=== PATIENT | female | born 1935 | race Caucasian/White ===

== ENCOUNTER 2017-09-21 19:00 | Inpatient (IN) | payer OTHER, MEDICARE ==
--- NOTE | 2017-09-21 19:14 | PDOC ---
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 Patients relative at bedside reports the patient was noted to be tachypneic earlier today while sitting upright in the car which prompted her to come to the ED for evaluation. She reports the patient has had episodes of nausea with emesis and diarrhea in the past 2 days. The patient states her last meal was this morning and states she was able to tolerate tea and toast. She denies recent fever, chills, headache or dizziness. She denies recent dysuria, frequency, urgency or hematuria. She denies recent chest pain. 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 MEDICATIONS: reviewed ALLERGIES: As per nursing notes Review of Systems General: +General malaise. No fevers or chills HEENT: No change in vision. No sore throat,. No ear pain CardioVascular: +Shortness of breath. No chest pain. Respiratory:No cough, or wheezing. Gastrointestinal: +Nausea. +Vomiting. +Diarrhea. No constipation, No rectal bleeding Genitourinary: No dysuria, hematuria, or frequency Musculoskeletal: No joint or muscle pain or swelling Neurologic: No headache, vertigo, dizziness or loss of consciousness Psychiatric: nor depression Skin: No rashes or easy bruising Endocrine: no increased thirst or abnormal weight change Allergic: no skin or latex allergy All other systems reviewed and normal Physical Exams General: (+) Elderly ill appearing female. No acute distress HEENT: Throat: (+) Dry mucus membranes. Tonsils normal, no erythema or exudate Neck: Supple, no meningeal signs, no lymphadenopathy Eyes::Pupils equal reactive and round, extraocular motion intact Chest: Nontender to palpation Cardiac: S1-S2 normal, regular rate and rhythm, no murmurs rubs or gallops Respiratory: (+) Decreased breath sounds bilaterally with rales both inspiratory and expiratory. (+) Few expiratory wheezes on the right. Abdomen: (+) Slightly distended. (+) Large palpable and firm mass in the mid abdominal area ??spleen. Otherwise soft and normal bowel sounds. No tenderness. Mass is not pulsatile Extremities: (+) Moderate amount of lymphedema bilaterally. Warm, dry, no cyanosis, clubbing. Skin: No rashes Neuro: Alert and oriented x3, nonfocal exam, grossly intact. Psych: Normal mood and affect <Yang Goode - Last Filed: 09/21/17 20:28> - General History Source: Patient, Family Exam Limitations: No Limitations - History of Present Illness Initial Comments: A portion of this note was documented by scribe services under my direction. I have reviewed the details of the note, within reason, and agree with the documentation. The case summary and management plan written by me. Medical decision making this is an 82-year-old female who comes in complaining of nausea vomiting diarrhea and feeling poorly. Patient also complaining of some chills. Patient was noted to have a rectal temp of 101.1 here in the emergency room. Patient has history significant for myelofibrosis. Will obtain a sepsis workup, will hydrate patient with normal saline patient is not hypotensive or tachycardic at this time. Will obtain chest x-ray and CAT scan of abdomen and pelvis We will reassess and evaluate results of workup 21:00 Reassessment. Patient is received approximately 1/2 L of fluid. Patient feels a little better and does look better. Patient somewhat more alert. Patient's family at the bedside discussed with them results of workup so far which includes a markedly elevated white count of 237,000. As per patient her last white count was 240,000. Patient requires frequent transfusion however her H&H today is 9 and 25 Patient does have renal insufficiency with a BUN of 77 and a creatinine of 2.2. 09/21/17 23:04 Reassessment: Reassessment: Patient is improved clinically and hemodynamically stable however does require oxygen to maintain O2 sats above 90%. Chest x-ray shows probable right upper lobe infiltrate While here patient antibiotics ceftriaxone and azithromycin CT of the abdomen is still pending Patient will be admitted to an inpatient observation bed <Garcia Still I - Last Filed: 09/21/17 23:06> - General Chief Complaint: Vomiting/Diarrhea Stated Complaint: NAUSEA, VOMITING, DIARRHEA Time Seen by Provider: 09/21/17 19:13 Past History <Yang Goode - Last Filed: 09/21/17 20:28> <Garcia Still I - Last Filed: 09/21/17 23:06> - Past Medical History Allergies/Adverse Reactions: Allergies Allergy/AdvReac Type Severity Reaction Status Date / Time erythromycin base AdvReac Mild Nausea Verified 09/21/17 19:15 Home Medications: Ambulatory Orders Hydroxyurea [Hydrea] 500 mg PO BID 09/21/17 Ruxolitinib Phosphate [Jakafi] 15 mg PO BID 09/21/17 *Physical Exam - Vital Signs Last Vital Signs Temp Pulse Resp BP Pulse Ox 101.1 F H 104 H 30 H 95/43 94 L 09/21/17 19:25 09/21/17 19:25 09/21/17 19:25 09/21/17 19:25 09/21/17 19:25 <Yang Goode - Last Filed: 09/21/17 20:28> Heart Score/ECG Review #1 09/21/17 20:29 Sinus rhythm with occasional premature ventricular complexes at 88 bpm. QT/QTc: 386/467 ms <Yang Goode - Last Filed: 09/21/17 20:28> ED Treatment Course - LABORATORY CBC & Chemistry Diagram: 09/21/17 19:30 09/21/17 19:30 <Yang Goode - Last Filed: 09/21/17 20:28> - LABORATORY CBC & Chemistry Diagram: 09/21/17 19:30 09/21/17 19:30 <Garcia Still I - Last Filed: 09/21/17 23:06> *DC/Admit/Observation/Transfer - Attestations Scribe Attestion: 09/21/17 20:12 Documentation prepared by Yang Goode, acting as medical records specialist for Garcia Still MD. <Yang Goode - Last Filed: 09/21/17 20:28> - Discharge Dispostion Admit: Yes <Garcia Still I - Last Filed: 09/21/17 23:06> Diagnosis at time of Disposition: Dehydration Pneumonia Qualifiers: Pneumonia type: due to unspecified organism Laterality: left Lung location: upper lobe of lung Qualified Code(s): J18.1 - Lobar pneumonia, unspecified organism - Discharge Dispostion Condition at time of disposition: Fair
[2017-09-21] MEDS ORDERED: SODIUM CHLORIDE 1,000 ML IV STA (19:20)
[2017-09-21 19:34] VITALS: BMI 22.4
[2017-09-21 20:02] LABS: HEMATOCRIT 25.3 % (32.4-45.2); HEMOGLOBIN 9.1 GM/dl (10.7-15.3); MCH 38.6 pg (25.7-33.7); MCHC 36.1 g/dl (32.0-36.0); MEAN CELL VOLUME 106.9 fl (80-96); MEAN PLT VOLUME 10.6 fl (7.5-11.1); RBC 2.37 M/mm3 (3.60-5.2); RDW 20.3 % (11.6-15.6)
[2017-09-21 20:09] LABS: WHITE BLOOD COUNT 237.4 K/mm3 (4.0-10.8)
[2017-09-21 20:10] LABS: ADD RBC MORPHOLOGY YES; PLATELET COUNT 45 K/MM3 (134-434)
[2017-09-21 20:27] LABS: ACTIVATED PTT 46.9 SECONDS (24.0-38.9)
[2017-09-21 20:28] LABS: ALBUMIN 3.7 g/dl (3.5-5.0); ALK PHOS 54 U/L (32-92); ANION GAP 7 (8-16); BILIRUBIN,TOTAL 0.8 mg/dl (0.2-1.0); BLOOD UREA NITROGEN 77 mg/dl (7-18); CALCIUM 8.2 mg/dl (8.4-10.2); CHLORIDE 108 mmol/L (98-107); CO2 21 mmol/L (22-28); CREATININE 2.2 mg/dl (0.6-1.3); GLUCOSE,RANDOM 134 mg/dl (74-106); POTASSIUM 4.6 mmol/L (3.5-5.1); SGOT/AST 16 U/L (10-42); SGPT/ALT 15 U/L (10-40); SODIUM 136 mmol/L (136-145); TOT PROT 5.3 g/dl (6.4-8.3)
[2017-09-21 20:30] LABS: VENOUS PH 7.31 (7.32-7.42); VENOUS PO2 11.6 mmHg (28-48)
[2017-09-21 20:31] LABS: INR 1.89 (0.82-1.09); PROTHROMBIN TIME (PATIENT) 20.9 SEC (10.2-13.0)
[2017-09-21 21:45] LABS: ANISOCYTOSIS 2+; MACROCYTOSIS 2+; TEAR DROP CELLS 1+
[2017-09-21 21:47] LABS: PLATELET ESTIMATE DECREASED
[2017-09-21 22:25] LABS: URINE APPEARANCE Clear; URINE BILIRUBIN Negative (NEGATIVE); URINE BLOOD Negative (NEGATIVE); URINE GLUCOSE (UA) Negative (NEGATIVE); URINE KETONE Negative (NEGATIVE); URINE LEUK ESTERASE Negative (NEGATIVE); URINE NITRITE Negative (NEGATIVE); URINE UROBILINOGEN 0.2 (0.2-1.0)
[2017-09-21 22:28] LABS: URINE COLOR YELLOW; URINE PROTEIN 2+ (NEGATIVE)
[2017-09-21] MEDS ORDERED: CEFTRIAXONE 1,000 MG in DEXTROSE 5%-WATER - 50 ML IVPB ONE (22:41)
[2017-09-21] MEDS ORDERED: cefTRIAXone SODIUM 1 GM VIAL ONE (22:43)
[2017-09-21] MEDS ORDERED: AZITHROMYCIN IVPB 500 MG in DEXTROSE 5%-WATER - 250 ML IVPB ONE (23:00)
[2017-09-21] MEDS ORDERED: AZITHROMYCIN 500 MG VIAL IVPB ONE (23:08)
[2017-09-21 23:14] LABS: URINE RBC 0-3 /hpf (0-3)
[2017-09-21 23:15] LABS: AMORP URATES MODERATE /hpf (NONE SEEN); URINE CASTS COASELY GRANULAR 3-5 /hpf
[2017-09-21] MEDS ORDERED: MAG HYDROX/AL HYDROX/SIMETH 30 ML UNIT-DOSE CUP ONE (23:29)
[2017-09-21] MEDS ORDERED: MAG HYDROX/AL HYDROX/SIMETH 30 ML UNIT-DOSE CUP PO ONE (23:36)
[2017-09-22] MEDS: HYDROXYUREA 500 MG CAPSULE PO SCH ×3 (00:36→21:36)
--- NOTE | 2017-09-22 09:00 | EKG ---
Test Reason : Blood Pressure : / mmHG Vent. Rate : 088 BPM Atrial Rate : 088 BPM P-R Int : 132 ms QRS Dur : 102 ms QT Int : 386 ms P-R-T Axes : 052 032 165 degrees QTc Int : 467 ms SINUS RHYTHM WITH OCCASIONAL PREMATURE VENTRICULAR COMPLEXES NONSPECIFIC ST AND T WAVE ABNORMALITY ABNORMAL ECG NO PREVIOUS ECGS AVAILABLE Confirmed by EBONI URELAS MD ([id number]) on 09/22/2017 9:00:36 AM Referred By: GARRETT Confirmed By:EBONI RUELAS MD
[2017-09-22 09:19] LABS: ANION GAP 7 (8-16); BLOOD UREA NITROGEN 78 mg/dl (7-18); CALCIUM 7.7 mg/dl (8.4-10.2); CHLORIDE 109 mmol/L (98-107); CO2 21 mmol/L (22-28); CREATININE 2.2 mg/dl (0.6-1.3); GLUCOSE,RANDOM 114 mg/dl (74-106); POTASSIUM 5.3 mmol/L (3.5-5.1); SODIUM 137 mmol/L (136-145)
[2017-09-22] MEDS: AZITHROMYCIN 250 MG TABLET PO SCH (09:43)
[2017-09-22] MEDS: CEFTRIAXONE 1 G/50 ML PREMIX 50 ML IVPB SCH (09:43)
[2017-09-22 09:55] LABS: HEMATOCRIT 25.2 % (32.4-45.2); RBC 2.29 M/mm3 (3.60-5.2)
[2017-09-22 10:02] LABS: HEMOGLOBIN 8.9 GM/dl (10.7-15.3); MCH 38.9 pg (25.7-33.7); MCHC 35.3 g/dl (32.0-36.0); MEAN PLT VOLUME 10.2 fl (7.5-11.1); PLATELET COUNT 55 K/MM3 (134-434); RDW 21.3 % (11.6-15.6)
[2017-09-22 10:12] LABS: WHITE BLOOD COUNT 238.9 K/mm3 (4.0-10.8)
--- NOTE | 2017-09-22 11:18 | HP ---
CHIEF COMPLAINT:This 82 yr old female who appears quite winded while talking to me this morning after activity to the commode, is a recent admission to [facility]. CC: SOB, n, v, d x 1 day PCP: on [place] HISTORY OF PRESENT ILLNESS: This 82 yr old female who has a significant hx of myleofibrosis, splenic infarct 2017 and elevated WBC 240's on average per pt. She had pneumonia last year during the winter season with + sepsis in ICU, and again most recently with PNA treated with keflex po at home in July. She was brought her by her family for increase shortness of breath. In the ER she was found to have right lobe pneumonia and started on Azithromax and Rocephin. ER course was notable for: (1) CXR with + PNA (2) Abd/pelvc CT noted for PNA, splenomegaly 27.9 x 13.8 (pt said is was slightly enlarged from 24) (3) Recent Travel: none PAST MEDICAL HISTORY: myleofibrosis and splenic infarct, followed by an oncologist in [place] PAST SURGICAL HISTORY: denies Social History: Smoking:none Alcohol:none Drugs: none Family History: Allergies erythromycin base Adverse Reaction (Mild, Verified 09/21/17 19:15) Nausea HOME MEDICATIONS: Home Medications Medication Instructions Recorded Hydroxyurea [Hydrea] 500 mg PO BID 09/21/17 Ruxolitinib Phosphate [Jakafi] 15 mg PO BID 09/21/17 REVIEW OF SYSTEMS CONSTITUTIONAL: Absent: +fever, chills, diaphoresis,+ generalized weakness, malaise, loss of appetite, weight change HEENT: Absent: rhinorrhea, nasal congestion, throat pain, throat swelling, difficulty swallowing, mouth swelling, ear pain, eye pain, visual changes CARDIOVASCULAR: Absent: chest pain, syncope, palpitations, irregular heart rate, lightheadedness , peripheral edema RESPIRATORY: Absent: +cough, +shortness of breath, +dyspnea with exertion, +orthopnea, wheezing, stridor, hemoptysis GASTROINTESTINAL: Absent: abdominal pain, + chronic abdominal distension, nausea, vomiting, diarrhea, constipation, melena, hematochezia GENITOURINARY: Absent: dysuria, frequency, urgency, hesitancy, hematuria, flank pain, genital pain MUSCULOSKELETAL: Absent: myalgia, arthralgia, joint swelling, back pain, neck pain SKIN: Absent: rash, itching, pallor HEMATOLOGIC/IMMUNOLOGIC: Absent: easy bleeding, easy bruising, lymphadenopathy, frequent infections ENDOCRINE: Absent: unexplained weight gain, unexplained weight loss, heat intolerance, cold intolerance NEUROLOGIC: Absent: headache, focal weakness or paresthesias, dizziness, unsteady gait, seizure, mental status changes, bladder or bowel incontinence PSYCHIATRIC: Absent: anxiety, depression, suicidal or homicidal ideation, hallucinations. PHYSICAL EXAMINATION Vital Signs - 24 hr 09/21/17 09/21/17 09/21/17 19:13 19:25 20:10 Temperature 98.2 F 101.1 F H Pulse Rate 100 H Pulse Rate [ 104 H 94 H Apical] Respiratory 34 H 30 H 22 Rate Blood Pressure 114/50 Blood Pressure 95/43 95/46 [Left Arm] O2 Sat by Pulse 91 L 94 L 96 Oximetry (%) 09/21/17 09/22/17 09/22/17 20:28 00:30 06:28 Temperature 99 F 98.3 F Pulse Rate 85 87 Pulse Rate [ 98 H Apical] Respiratory 22 22 22 Rate Blood Pressure 105/46 100/49 Blood Pressure 102/48 [Left Arm] O2 Sat by Pulse 95 95 Oximetry (%) 09/22/17 07:50 Temperature Pulse Rate Pulse Rate [ Apical] Respiratory Rate Blood Pressure Blood Pressure [Left Arm] O2 Sat by Pulse 95 Oximetry (%) GENERAL: Awake, alert, and fully oriented, in minor acute distress while talking and excertion. HEAD: Normal with no signs of trauma. EYES: Pupils equal, round and reactive to light, extraocular movements intact, sclera anicteric, conjunctiva clear. No lid lag. EARS, NOSE, THROAT: Ears normal, nares patent, oropharynx clear without exudates. Moist mucous membranes. NECK: Normal range of motion, supple without lymphadenopathy, JVD, or masses. LUNGS: Breath sounds equal, +diminished with rhonchi to auscultation bilaterally. No wheezes, and no crackles. No accessory muscle use. HEART: Regular rate and rhythm, normal S1 and S2 without murmur, rub or gallop. ABDOMEN: Soft, nontender, not distended, normoactive bowel sounds, no guarding, no rebound, no masses. No hepatomegaly + splenomegaly. MUSCULOSKELETAL: Normal range of motion at all joints. No bony deformities or tenderness. No CVA tenderness. UPPER EXTREMITIES: 2+ pulses, warm, well-perfused. No cyanosis. No clubbing. No peripheral edema. LOWER EXTREMITIES: 2+ pulses, warm, well-perfused. No calf tenderness. No peripheral edema. NEUROLOGICAL: Cranial nerves II-XII intact. Normal gait. PSYCHIATRIC: Cooperative. Good eye contact. Appropriate mood and affect. SKIN: Warm, dry, poor turgor, no rashes or lesions noted, normal capillary refill. Laboratory Results - last 24 hr 09/21/17 09/21/17 09/21/17 19:30 19:30 19:30 WBC 237.4 H* RBC 2.37 L Hgb 9.1 L Hct 25.3 L MCV 106.9 H MCH 38.6 H MCHC 36.1 H RDW 20.3 H Plt Count 45 L* MPV 10.6 Neutrophils % No Result Required. Lymphocytes % No Result Required. Nucleated RBC % 6 H Differential Comment Hypersegmented Neuts 3+ Hypochromia 1+ Platelet Estimate Decreased Platelet Comment No clumping noted Anisocytosis 2+ Microcytosis 1+ Macrocytosis 2+ Tear Drop Cells 1+ PT with INR 20.9 H INR 1.89 H PTT (Actin FS) 46.9 H VBG pH 7.31 L POC VBG pCO2 41.0 POC VBG pO2 11.6 L* Mixed VBG HCO3 19.8 Sodium Potassium Chloride Carbon Dioxide Anion Gap BUN Creatinine Creat Clearance w eGFR Random Glucose Lactic Acid Calcium Total Bilirubin AST ALT Alkaline Phosphatase Creatine Kinase Troponin I Total Protein Albumin Urine Color Urine Appearance Urine pH Ur Specific [place] Urine Protein Urine Glucose (UA) Urine Ketones Urine Blood Urine Nitrite Urine Bilirubin Urine Urobilinogen Ur Leukocyte Esterase Urine RBC Urine WBC Ur Epithelial Cells Amorphous Urates Urine Casts Blood Type Antibody Screen 09/21/17 09/21/17 09/21/17 19:30 19:30 19:30 WBC RBC Hgb Hct MCV MCH MCHC RDW Plt Count MPV Neutrophils % Lymphocytes % Nucleated RBC % Differential Comment Hypersegmented Neuts Hypochromia Platelet Estimate Platelet Comment Anisocytosis Microcytosis Macrocytosis Tear Drop Cells PT with INR INR PTT (Actin FS) VBG pH POC VBG pCO2 POC VBG pO2 Mixed VBG HCO3 Sodium 136 Potassium 4.6 Chloride 108 H Carbon Dioxide 21 L Anion Gap 7 L BUN 77 H Creatinine 2.2 H Creat Clearance w eGFR 21.32 Random Glucose 134 H Lactic Acid 1.4 Calcium 8.2 L Total Bilirubin 0.8 AST 16 ALT 15 Alkaline Phosphatase 54 Creatine Kinase Cancelled Troponin I Total Protein 5.3 L Albumin 3.7 Urine Color Urine Appearance Urine pH Ur Specific [place] Urine Protein Urine Glucose (UA) Urine Ketones Urine Blood Urine Nitrite Urine Bilirubin Urine Urobilinogen Ur Leukocyte Esterase Urine RBC Urine WBC Ur Epithelial Cells Amorphous Urates Urine Casts Blood Type O NEGATIVE Antibody Screen Negative 09/21/17 09/21/17 09/21/17 19:30 19:30 19:40 WBC RBC Hgb Hct MCV MCH MCHC RDW Plt Count MPV Neutrophils % Lymphocytes % Nucleated RBC % Differential Comment Hypersegmented Neuts Hypochromia Platelet Estimate Platelet Comment Anisocytosis Microcytosis Macrocytosis Tear Drop Cells PT with INR INR PTT (Actin FS) VBG pH POC VBG pCO2 POC VBG pO2 Mixed VBG HCO3 Sodium Potassium Chloride Carbon Dioxide Anion Gap BUN Creatinine Creat Clearance w eGFR Random Glucose Lactic Acid Calcium Total Bilirubin AST ALT Alkaline Phosphatase Creatine Kinase 11 L Troponin I < 0.03 Total Protein Albumin Urine Color Urine Appearance Urine pH Ur Specific [place] Urine Protein Urine Glucose (UA) Urine Ketones Urine Blood Urine Nitrite Urine Bilirubin Urine Urobilinogen Ur Leukocyte Esterase Urine RBC Urine WBC Ur Epithelial Cells Amorphous Urates Urine Casts Blood Type O NEGATIVE Antibody Screen 09/21/17 09/22/17 09/22/17 22:20 06:00 06:00 WBC 238.9 H* RBC 2.29 L Hgb 8.9 L Hct 25.2 L MCV 110.0 H MCH 38.9 H MCHC 35.3 RDW 21.3 H Plt Count 55 L MPV 10.2 Neutrophils % No Result Required. Lymphocytes % No Result Required. Nucleated RBC % Differential Comment Hypersegmented Neuts Hypochromia Platelet Estimate Platelet Comment Anisocytosis Microcytosis Macrocytosis Tear Drop Cells PT with INR INR PTT (Actin FS) VBG pH POC VBG pCO2 POC VBG pO2 Mixed VBG HCO3 Sodium 137 Potassium 5.3 H Chloride 109 H Carbon Dioxide 21 L Anion Gap 7 L BUN 78 H Creatinine 2.2 H Creat Clearance w eGFR Random Glucose 114 H Lactic Acid Calcium 7.7 L Total Bilirubin AST ALT Alkaline Phosphatase Creatine Kinase Troponin I Total Protein Albumin Urine Color Yellow Urine Appearance Clear Urine pH 5.0 Ur Specific [place] 1.015 Urine Protein 2+ H Urine Glucose (UA) Negative Urine Ketones Negative Urine Blood Negative Urine Nitrite Negative Urine Bilirubin Negative Urine Urobilinogen 0.2 Ur Leukocyte Esterase Negative Urine RBC 0-3 Urine WBC 3-5 Ur Epithelial Cells 3-5 Amorphous Urates Moderate Urine Casts Coasely granular 3-5 Blood Type Antibody Screen ASSESSMENT/PLAN: This 82 yr old female with hx of myleofibrosis and splenic infarct now with pneumonia 3rd time this winter. 1. pneumonia -day 2 of azithromycin and rocephin -oxygen to maintain sat of >95 % -incentive spirometer -PT consult and ambulation -ID consult called 2. Splenomegaly -monitor WBC -fall precautions -monitor coags -bowel regime as needed 3. FEN -regular diet -SCD boots -daily electrolyte monitoring. -daily weights -recognized cr 2.2 (according to pt this is not new) Dispo: inpatient admission for IV antibiotics for PNA treatment. Visit type - Emergency Visit Emergency Visit: Yes ED Registration Date: 09/21/17 Care time: The patient presented to the Emergency Department on the above date and was hospitalized for further evaluation of their emergent condition. - New Patient This patient is new to me today: Yes Date on this admission: 09/22/17 - Critical Care Critical Care patient: No Hospitalist Screening - Colonoscopy Questionnaire Colonoscopy Questionnaire: Colonoscopy Questionnaire - Patient: 50 - 75 years old and never had a screening colonoscopy: Yes History of colon or rectal polyps, or CA: No History of IBD, Crohn's disease or UC: No History of abdominal radiation therapy as a child: No - Relative: 1 with colon or rectal CA, or polyps at age 60 or younger: Unknown Colon or rectal CA diagnosed at age 45 or younger: Unknown Multiple relatives with colon or rectal CA: Unknown - Outcome: Screening Result: Positive Screen
[2017-09-22] MEDS: ALBUTEROL SO4 0.083% IH SOL 2.5 MG/3 ML VIAL.NEB. NEB PRN ×2 (11:54→21:01)
[2017-09-22] MEDS: ACETAMINOPHEN 325 MG TABLET (FP) PO PRN (22:23)
[2017-09-23] MEDS: ALBUTEROL SO4 0.083% IH SOL 2.5 MG/3 ML VIAL.NEB. NEB PRN (06:31)
--- NOTE | 2017-09-23 07:41 | PN ---
Physical Exam: SUBJECTIVE: Patient seen and examined, reports ongoing back pain, denies any chest pain or shortness of breath. OBJECTIVE: patient is a 82 y/o female with a past medical history of myleofibrosis, spleenic infarct, and pneumonia (last diagnosed 08/04, finished 10 days of keflex), patient was admitted from the emergency department for emergent condition. Vital Signs Period Temp Pulse Resp BP Sys/Vo Pulse Ox Last 24 Hr 98.5 F-98.9 F 80-90 19-20 85-99/35-43 88-95 GENERAL: The patient is awake, alert, and fully oriented, in no acute distress. HEAD: Normal with no signs of trauma. EYES: PERRL, extraocular movements intact, sclera anicteric, conjunctiva clear. No ptosis. ENT: Ears normal, nares patent, oropharynx clear without exudates, dry mucous membranes. NECK: Trachea midline, full range of motion, supple. LUNGS: Breath sounds equal, course rhonchi bilateraly throughout, significantly diminished to billateral upper lobes, moist cough noted, no wheezes, no crackles, no accessory muscle use. HEART: Regular rate and rhythm, S1, S2, 2/6 systolic murmur, rub or gallop. ABDOMEN: Soft, nontender, nondistended, normoactive bowel sounds, no guarding, no rebound, + spleenomegaly, no masses. EXTREMITIES: 2+ pulses, warm, well-perfused, no edema. NEUROLOGICAL: Cranial nerves II through XII grossly intact. Normal speech, gait not observed. PSYCH: Normal mood, normal affect. SKIN: Warm, dry, normal turgor, no rashes or lesions noted Laboratory Results - last 24 hr CBC WBC 283.5 K/mm3 (4.0-10.8) H* 09/23/17 07:19 RBC 2.37 M/mm3 (3.60-5.2) L 09/23/17 07:19 Hgb 9.0 GM/dl (10.7-15.3) L 09/23/17 07:19 Hct 25.4 % (32.4-45.2) L 09/23/17 07:19 MCV 107.3 fl (80-96) H 09/23/17 07:19 MCH 37.9 pg (25.7-33.7) H 09/23/17 07:19 MCHC 35.3 g/dl (32.0-36.0) 09/23/17 07:19 RDW 21.9 % (11.6-15.6) H 09/23/17 07:19 Plt Count 40 K/MM3 (134-434) L* 09/23/17 07:19 MPV 10.8 fl (7.5-11.1) 09/23/17 07:19 Total Counted Cancelled 09/22/17 06:00 Neutrophils % No Result Required. 09/23/17 07:19 Neutrophils % (Manual) Cancelled 09/22/17 06:00 Band Neutrophils % Cancelled 09/22/17 06:00 Lymphocytes % No Result Required. 09/23/17 07:19 Lymphocytes % (Manual) Cancelled 09/22/17 06:00 Monocytes % (Manual) Cancelled 09/22/17 06:00 Eosinophils % (Manual) Cancelled 09/22/17 06:00 Basophils % (Manual) Cancelled 09/22/17 06:00 Myelocytes % (Man) Cancelled 09/22/17 06:00 Promyelocytes % (Man) Cancelled 09/22/17 06:00 Blast Cells % (Manual) Cancelled 09/22/17 06:00 Nucleated RBC % 6 % (0-0) H 09/21/17 19:30 Metamyelocytes Cancelled 09/22/17 06:00 Differential Comment 09/21/17 19:30 Hypersegmented Neuts 3+ 09/21/17 19:30 Plasma Cells Cancelled 09/22/17 06:00 Smudge Cells Cancelled 09/22/17 06:00 Other Cell Type Cancelled 09/22/17 06:00 Hypochromia 1+ 09/21/17 19:30 Toxic Granulation Cancelled 09/22/17 06:00 Dohle Bodies Cancelled 09/22/17 06:00 Platelet Estimate Decreased 09/21/17 19:30 Platelet Comment No clumping noted 09/21/17 19:30 Polychromasia Cancelled 09/22/17 06:00 Poikilocytosis Cancelled 09/22/17 06:00 Basophilic Stippling Cancelled 09/22/17 06:00 Anisocytosis 2+ 09/21/17 19:30 Microcytosis 1+ 09/21/17 19:30 Macrocytosis 2+ 09/21/17 19:30 Spherocytes Cancelled 09/22/17 06:00 Siderocytes Cancelled 09/22/17 06:00 Sickle Cells Cancelled 09/22/17 06:00 Target Cells Cancelled 09/22/17 06:00 Tear Drop Cells 1+ 09/21/17 19:30 Ovalocytes Cancelled 09/22/17 06:00 Stomatocytes Cancelled 09/22/17 06:00 Helmet Cells Cancelled 09/22/17 06:00 [place] Bodies Cancelled 09/22/17 06:00 [place] Rings Cancelled 09/22/17 06:00 Sun Cells Cancelled 09/22/17 06:00 Acanthocytes (Spur) Cancelled 09/22/17 06:00 Rouleaux Cancelled 09/22/17 06:00 Fragmented RBCs Cancelled 09/22/17 06:00 Schistocytes Cancelled 09/22/17 06:00 CMP Sodium 137 mmol/L (136-145) 09/23/17 07:19 Potassium 4.7 mmol/L (3.5-5.1) 09/23/17 07:19 Chloride 111 mmol/L (98-107) H 09/23/17 07:19 Carbon Dioxide 18 mmol/L (22-28) L 09/23/17 07:19 Anion Gap 8 (8-16) 09/23/17 07:19 BUN 88 mg/dl (7-18) H 09/23/17 07:19 Creatinine 2.5 mg/dl (0.6-1.3) H 09/23/17 07:19 Creat Clearance w eGFR 18.39 (>60) 09/23/17 07:19 Random Glucose 136 mg/dl (74-106) H 09/23/17 07:19 Lactic Acid 1.4 mmol/L (0.0-2.0) 09/21/17 19:30 Calcium 7.6 mg/dl (8.4-10.2) L 09/23/17 07:19 Magnesium 2.6 mg/dL (1.8-2.4) H 09/23/17 07:19 Total Bilirubin 0.8 mg/dl (0.2-1.0) 09/23/17 07:19 AST 11 U/L (10-42) D 09/23/17 07:19 ALT 13 U/L (10-40) 09/23/17 07:19 Alkaline Phosphatase 48 U/L (32-92) 09/23/17 07:19 Creatine Kinase 11 IU/L (26-192) L 09/21/17 19:30 Troponin I < 0.03 ng/ml (0.00-0.06) 09/21/17 19:30 Total Protein 4.9 g/dl (6.4-8.3) L 09/23/17 07:19 Albumin 3.4 g/dl (3.5-5.0) L 09/23/17 07:19 Active Medications Generic Name Dose Route Start Last Admin Trade Name Freq PRN Reason Stop Dose Admin Acetaminophen 650 mg 09/22/17 21:56 09/22/17 22:23 Tylenol - PO 650 mg Q6H PRN Administration PAIN LEVEL 4 - 6 Albuterol/Ipratropium 1 amp 09/23/17 12:00 09/23/17 12:30 Duoneb - NEB 1 amp RQID NATALYA Administration Azithromycin 500 mg 09/22/17 10:00 09/23/17 10:12 Zithromax - PO 09/24/17 10:01 500 mg DAILY NATALYA Administration Hydroxyurea 500 mg 09/21/17 23:45 09/23/17 10:13 Hydrea - PO 500 mg BID NATALYA Administration CEFTRIAXONE 1 G/50 ML PREMIX 50 mls @ 100 mls/hr 09/22/17 10:00 09/23/17 10: 12 Ceftriaxone 1 Gm-D5w Bag IVPB 100 mls/hr DAILY NATALYA Administration Sodium Chloride 1,000 mls @ 75 mls/hr 09/23/17 08:45 09/23/17 09:40 Normal Saline - IV 09/23/17 22:04 75 mls/hr ASDIR NATALYA Administration Microbiology 09/21/17 22:20 Urine - Urine Clean Catch Urine Culture - Final Contaminated: Please Repeat 09/21/17 19:30 Blood - Peripheral Venous Blood Culture - Preliminary NO GROWTH OBTAINED AFTER 24 HOURS, INCUBATION TO CONTINUE FOR 4 DAYS. 09/21/17 19:40 Blood - Peripheral Venous Blood Culture - Preliminary NO GROWTH OBTAINED AFTER 24 HOURS, INCUBATION TO CONTINUE FOR [address] of abd/pelvis w/o contrast: enlarged spleen, cholelithasis, multi-segment septal thickening with groundglass opacities in bilateral lung base, small bilateral layering pleural effusions, multichamber cardiomegly as per radiologist, Dr Palmer CT of chest: extensive ground glass opacification throughout the lung o[place], upper lobe predominant, may be diffuse pneumonitis vs pulmonary vascular congestion. 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 ppx - mechanical ac - protonix Dispo: inpatient admission Visit type - Emergency Visit Emergency Visit: Yes ED Registration Date: 09/21/17 Care time: The patient presented to the Emergency Department on the above date and was hospitalized for further evaluation of their emergent condition. - New Patient This patient is new to me today: Yes Date on this admission: 09/23/17 - Critical Care Critical Care patient: No - Discharge Referral Referred to [facility] Med [facility] No
[2017-09-23 07:59] LABS: ACTIVATED PTT 46.6 SECONDS (24.0-38.9)
[2017-09-23 08:03] LABS: INR 1.74 (0.82-1.09); PROTHROMBIN TIME (PATIENT) 19.3 SEC (10.2-13.0)
[2017-09-23 08:05] LABS: ALBUMIN 3.4 g/dl (3.5-5.0); ALK PHOS 48 U/L (32-92); ANION GAP 8 (8-16); BILIRUBIN,TOTAL 0.8 mg/dl (0.2-1.0); BLOOD UREA NITROGEN 88 mg/dl (7-18); CALCIUM 7.6 mg/dl (8.4-10.2); CHLORIDE 111 mmol/L (98-107); CO2 18 mmol/L (22-28); CREATININE 2.5 mg/dl (0.6-1.3); GLUCOSE,RANDOM 136 mg/dl (74-106); MAGNESIUM 2.6 mg/dL (1.8-2.4); POTASSIUM 4.7 mmol/L (3.5-5.1); SGOT/AST 11 U/L (10-42); SGPT/ALT 13 U/L (10-40); SODIUM 137 mmol/L (136-145); TOT PROT 4.9 g/dl (6.4-8.3)
[2017-09-23] MEDS ORDERED: ALBUTEROL SO4 0.083% IH SOL 2.5 MG/3 ML VIAL.NEB. NEB ONE (08:15)
--- NOTE | 2017-09-23 08:44 | PN ---
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 yearly started on rocephin/zithromax in ED feeling better cxray- perihilar infiltrates and DAVID infiltrate imp/reccd pneumonia -?cap, ?OI possible CHF hypoxia Myeloproliferative disorder CKD chest ct echo urinary antigens oncology consult rocephin/zithromax pulmonary/cardiology consults Problem List - Problems (1) Pneumonia Code(s): J18.9 - PNEUMONIA, UNSPECIFIED ORGANISM Qualifiers: Pneumonia type: due to unspecified organism Laterality: left Lung location: upper lobe of lung Qualified Code(s): J18.1 - Lobar pneumonia, unspecified organism (2) CHF (congestive heart failure) Code(s): I50.9 - HEART FAILURE, UNSPECIFIED (3) CKD (chronic kidney disease) Code(s): N18.9 - CHRONIC KIDNEY DISEASE, UNSPECIFIED (4) Myelofibrosis Code(s): D75.81 - MYELOFIBROSIS
[2017-09-23] MEDS ORDERED: SODIUM CHLORIDE 1,000 ML IV SCH (08:45)
[2017-09-23 08:57] LABS: HEMATOCRIT 25.4 % (32.4-45.2); MCH 37.9 pg (25.7-33.7); MCHC 35.3 g/dl (32.0-36.0); MEAN CELL VOLUME 107.3 fl (80-96); MEAN PLT VOLUME 10.8 fl (7.5-11.1); PLATELET COUNT 40 K/MM3 (134-434); RBC 2.37 M/mm3 (3.60-5.2); RDW 21.9 % (11.6-15.6)
[2017-09-23 09:13] LABS: WHITE BLOOD COUNT 283.5 K/mm3 (4.0-10.8)
[2017-09-23] MEDS: CEFTRIAXONE 1 G/50 ML PREMIX 50 ML IVPB SCH (10:12)
[2017-09-23] MEDS: AZITHROMYCIN 250 MG TABLET PO SCH (10:12)
[2017-09-23] MEDS: HYDROXYUREA 500 MG CAPSULE PO SCH ×2 (10:13→21:22)
--- NOTE | 2017-09-23 11:08 | CONS ---
DATE OF CONSULTATION: REQUESTING PHYSICIAN: Hospice service HISTORY: The patient was seen and examined. Case was discussed with the hospice service. This is an 82-year-old woman. She lives at home. She lives in the [place] area. 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 She called her over the weekend and said she was not feeling well, and she was brought to the hospital on the 7th to [employer]. She reports that she has a past medical history significant for myelofibrosis. She originally had polycythemia 10 years ago, and about 5 years ago it became myelofibrosis. 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 She is followed by an oncologist in [place]. Reports her baseline white count is 240,000. She is frequently anemic. She is status post a blood transfusion 3 weeks ago and has a platelet count between 50,000-70,000. She presents with 1-2 weeks of progressive shortness of breath. She has no fever or cough. She denies any change in her appetite. She feels overall very weak. She has had no diarrhea. She has been eating well. She has had no chills. She has no headache or change in vision. She has no chest pain. She notes that she has back pain extending across her upper thoracic spine. PAST MEDICAL HISTORY: Notable for polycythemia 10 years ago, which converted to myelofibrosis about 5 years ago. She has a history of a splenic infarct 1 year ago. Chronic kidney disease with a creatinine of 2. She tells me she has had a murmur for 60 years and sees a software reverse engineer once a year. She was admitted 2 years ago in [place] for sepsis and pneumonia and had a 21-day stay in the hospital. She is not aware of the details. She thinks perhaps she was in the ICU. She recently in July developed some chest congestion and cough, no fever. She had a chest x-ray done by her oncologist and was treated with 1-week of Keflex with improvement. Except for that, she has not had any recent hospitalizations. She also has chronic lymphedema and goes for massage of her legs, and she says she was told her lymphedema is due to her enlarged spleen. PAST SURGICAL HISTORY: Notable for bilateral knee replacements done in the hospital for special surgery. FAMILY HISTORY: Noncontributory. SOCIAL HISTORY: She is . She has been for over 20 years, and she lives alone. 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 There has been no house construction. She has no pets. She has had no sick contacts. ALLERGIES: She is allergic to ERYTHROMYCIN but tolerates a Z-Jone. MEDICATIONS: At home include Sohan 15 mg p.o. b.i.d. and Hydrea 500 mg p.o. b.i.d. REVIEW OF SYSTEMS: She has no diarrhea. She is tolerating her meals. She reports feeling better since she came in. PHYSICAL EXAMINATION: General: She is awake and alert. Vital Signs: She had a fever of 101.1 in the emergency room. Current temperature 98.5, pulse 88, blood pressure 92/42, respiratory rate is 18. She is saturating 90% on 3 L. HEENT: She is normocephalic. Her eyes are anicteric. She has no thrush. Neck: Supple. Lungs: Some crackles at the bases. Heart: Regular rate and rhythm. She has a 2/6 systolic murmur. Abdomen: Firm. She has a palpable spleen on the left side of her abdomen. Extremities: Notable for chronic lymphedema more in her thighs than her lower legs. She says it generally extends from her upper thighs down to her legs, and she has well-healed bilateral total knee replacement scars. LABORATORY DATA: Her white count was 238, hemoglobin 8.9, platelets 55,000, INR 1.8. Today's labs are all pending. BUN 78, creatinine 2.2. Liver function tests are normal. Urinalysis is negative. Chest x-ray reveals a prominent hilar congestion and what looks like a right upper lobe infiltrate. CAT scan of the abdomen and pelvis was done as well in the emergency room and notable for massively enlarged spleen. She has hepatomegaly, rectosigmoid wall thickening that may be due to under distention, cholelithiasis. No acute cholecystitis. She has some ground-glass opacities in her lung bases. She has cardiomegaly as well with aortic valve calcification. In summary, this is an elderly woman admitted with 2 weeks of worsening shortness of breath with a fever of 101 in the ED and no cough who on chest x-ray has evidence of pneumonia. She has had no recent hospitalizations. Suggest we continue ceftriaxone and Rocephin at this time. Would obtain a chest x-ray and echocardiogram. Urinary antigens for Legionella and pneumococcus and an Oncology consult. Depending on the study, she may well need to be seen by Cardiology as well. I suspect she has pneumonia. May have a component of CHF as well. Apparently, her baseline creatinine is 2. The case was discussed at length with the hospitalist with further recommendations to follow. Her problem list would include pneumonia, heart failure, chronic kidney disease, and myelofibrosis. NILAM ALBARRAN M.D. [id number]
[2017-09-23] MEDS: ALBUTEROL SO4 2.5/IPRATROPIUM 0.5 INH SOL 3 ML VIAL.NEB. NEB SCH ×3 (12:30→20:10)
[2017-09-23 14:35] LABS: N-TERMINAL BNP 16603.91 pg/ml (5-450)
--- NOTE | 2017-09-23 19:16 | CONSULT ---
Consult Consult Specialty:: heme/onc Referred by:: jimi foss Reason for Consultation:: MF - History of Present Illness Chief Complaint: inc in sob History of Present Illness: 82 yof w h/o MF c/o inc sob over past 1 1/2 weeks; denies cough or fever. Initially dx'd w P Vera 12y ago, tx'd w phleb. Notes more recent MF transformation. Tx'd w Jakafi for past 7 1/2 y and HU added past 1 1/2 y in setting of increasing counts/ splenomeg w infarct. c/o splenic discomfort w poor PO intake w abd distension and new LE edema requiring massage tx. Notes recent wbc up to 280k, plts 40-50, and has required transfusion 2w ago due to Hb 6-7. Also receives procrit. Here found to be febrile, hypoxic, and imaging evidencing diffuse gg opacities - History Source History Provided By: Patient, Medical Record - Past Medical History Cardio/Vascular: Yes: Murmur - Alcohol/Substance Use Hx Alcohol Use: No - Smoking History Smoking history: Former smoker Have you smoked in the past 12 months: No If you are a former smoker, when did you quit?: 1973 Home Medications - Allergies Allergies/Adverse Reactions: Allergies Allergy/AdvReac Type Severity Reaction Status Date / Time erythromycin base AdvReac Mild Nausea Verified 09/21/17 19:15 - Home Medications Home Medications: Ambulatory Orders Hydroxyurea [Hydrea] 500 mg PO BID 09/21/17 Ruxolitinib Phosphate [Jakafi] 15 mg PO BID 09/21/17 Review of Systems - Review of Systems Respiratory: reports: SOB Physical Exam Vital Signs: Vital Signs Temperature 98.2 F 09/23/17 18:00 Pulse Rate 77 09/23/17 18:00 Respiratory Rate 18 09/23/17 18:00 Blood Pressure 106/86 09/23/17 18:00 O2 Sat by Pulse Oximetry (%) 93 L 09/23/17 14:42 Constitutional: Yes: Calm Eyes: Yes: WNL HENT: Yes: WNL, Other (dry MM) Neck: Yes: Supple Cardiovascular: Yes: Regular Rate and Rhythm Respiratory: Yes: CTA Bilaterally, On Nasal O2 (distended, marked firm SM and HM ), Other (non-tachypneic) Edema: Yes Edema: LLE: 2+, RLE: 2+ Peripheral Pulses WNL: Yes Integumentary: Yes: Other (few UE bruises at IV sites) Labs: CBC, BMP 09/23/17 07:19 09/23/17 07:19 Assessment/Plan MF w subacute SOB, hypoxemia, possib pna Per pt who is knowledgeable re: her counts, the cbc is at baseline. We are awaiting flow cytometry to more accurately assess blast percentage to comment on transformation to acute leukemia. Smear rev'd. She understands she is not candidate for aggressive tx and notes she prefers non-aggressive measures. Options are limited and would focus on comfort, dignified measures. Leukemic infiltrates, drug-induced pneumonitis are in differential. HU and jakafi can both cause, but doubtful in view of duration of tx. Hold jakafi for now, stefania in view of the worsened RI. Suggest pulm eval labs also concerning for t lysis, tho' clearly component of dehydration gentle hydration and will use HU for now in attempts to better control counts Send uric acid, LDH, phos following w you
[2017-09-23] MEDS ORDERED: HYDROXYUREA 500 MG CAPSULE PO ONE (22:00)
[2017-09-24] MEDS: ACETAMINOPHEN 325 MG TABLET (FP) PO PRN (01:48)
[2017-09-24] MEDS ORDERED: morphine CARPU-JECT 2 MG/1 ML DISP.SYRIN ONE (08:06)
[2017-09-24 08:14] LABS: ALBUMIN 3.5 g/dl (3.5-5.0); ALK PHOS 53 U/L (32-92); ANION GAP 6 (8-16); BILIRUBIN,TOTAL 0.8 mg/dl (0.2-1.0); BLOOD UREA NITROGEN 90 mg/dl (7-18); CALCIUM 7.3 mg/dl (8.4-10.2); CHLORIDE 112 mmol/L (98-107); CO2 18 mmol/L (22-28); CREATININE 2.6 mg/dl (0.6-1.3); GLUCOSE,RANDOM 137 mg/dl (74-106); LDH 494 U/L (91-180); MAGNESIUM 2.8 mg/dL (1.8-2.4); PHOSPHOROUS 6.1 mg/dl (2.5-4.6); POTASSIUM 5.2 mmol/L (3.5-5.1); SGOT/AST 17 U/L (10-42); SGPT/ALT 13 U/L (10-40); SODIUM 136 mmol/L (136-145); TOT PROT 5.1 g/dl (6.4-8.3); URIC ACID 11.1 mg/dl (2.6-7.2)
--- NOTE | 2017-09-24 08:18 | PN ---
Physical Exam: SUBJECTIVE: Patient seen and examined, reports feeling tired with pain to back, spo2 88% on 100%NRB OBJECTIVE: patient is a 82 y/o female with a past medical history of myleofibrosis, spleenic infarct, and pneumonia (last diagnosed 08/04, finished 10 days of keflex), patient was admitted from the emergency department for emergent condition. Vital Signs Period Temp Pulse Resp BP Sys/Vo Pulse Ox Last 24 Hr 98.2 F-98.6 F 50-96 18-20 104-140/44-88 84-93 GENERAL: The patient is lethargic, opens eyes to touch, and oriented times person and place. HEAD: Normal with no signs of trauma. EYES: PERRL, extraocular movements intact, sclera anicteric, conjunctiva clear. No ptosis. ENT: Ears normal, nares patent, oropharynx clear without exudates, moist mucous membranes. NECK: Trachea midline, full range of motion, supple. LUNGS: Breath sounds equal, course rhonchi to bilateral apexes, crackles to bilateral bases, no wheezes, no accessory muscle use. HEART: Regular rate and rhythm, S1, S2 without murmur, rub or gallop. ABDOMEN: Soft, nontender, nondistended, normoactive bowel sounds, no guarding, no rebound, no hepatosplenomegaly, no masses. EXTREMITIES: 2+ pulses, warm, well-perfused, no edema. NEUROLOGICAL: Cranial nerves II through XII grossly intact. Normal speech, gait not observed. PSYCH: Normal mood, normal affect. SKIN: Warm, dry, normal turgor, no rashes or lesions noted Laboratory Results - last 24 hr 09/21/17 09/23/17 09/23/17 19:30 07:19 07:19 WBC 283.5 H* Corrected WBC (auto) RBC 2.37 L Hgb 9.0 L Hct 25.4 L MCV 107.3 H MCH 37.9 H MCHC 35.3 RDW 21.9 H Plt Count 40 L* MPV 10.8 Neutrophils % No Result Required. Neutrophils % (Manual) 51.0 Band Neutrophils % 5.0 Lymphocytes % No Result Required. Lymphocytes % (Manual) 5.0 L Monocytes % Monocytes % (Manual) 15 H Eosinophils % Eosinophils % (Manual) 5.0 H Basophils % Myelocytes % (Man) 4 H Promyelocytes % (Man) 1 Blast Cells % (Manual) 5 H Nucleated RBC % Metamyelocytes 5 H Differential Comment Platelet Estimate Platelet Comment PT with INR 19.3 H INR 1.74 H PTT (Actin FS) 46.6 H Sodium Potassium Chloride Carbon Dioxide Anion Gap BUN Creatinine Creat Clearance w eGFR Random Glucose Calcium Magnesium Total Bilirubin AST ALT Alkaline Phosphatase B-Natriuretic Peptide Total Protein Albumin 09/23/17 09/24/17 07:19 07:20 WBC Cancelled Corrected WBC (auto) Cancelled RBC Cancelled Hgb Cancelled Hct Cancelled MCV Cancelled MCH Cancelled MCHC Cancelled RDW Cancelled Plt Count Cancelled MPV Cancelled Neutrophils % Cancelled Neutrophils % (Manual) Band Neutrophils % Lymphocytes % Cancelled Lymphocytes % (Manual) Monocytes % Cancelled Monocytes % (Manual) Eosinophils % Cancelled Eosinophils % (Manual) Basophils % Cancelled Myelocytes % (Man) Promyelocytes % (Man) Blast Cells % (Manual) Nucleated RBC % Cancelled Metamyelocytes Differential Comment Platelet Estimate Cancelled Platelet Comment Cancelled PT with INR INR PTT (Actin FS) Sodium 137 Potassium 4.7 Chloride 111 H Carbon Dioxide 18 L Anion Gap 8 BUN 88 H Creatinine 2.5 H Creat Clearance w eGFR 18.39 Random Glucose 136 H Calcium 7.6 L Magnesium 2.6 H Total Bilirubin 0.8 AST 11 D ALT 13 Alkaline Phosphatase 48 B-Natriuretic Peptide 15426.91 H Total Protein 4.9 L Albumin 3.4 L Active Medications Generic Name Dose Route Start Last Admin Trade Name Freq PRN Reason Stop Dose Admin Acetaminophen 650 mg 09/22/17 21:56 09/24/17 01:48 Tylenol - PO 650 mg Q6H PRN Administration PAIN LEVEL 4 - 6 Albuterol/Ipratropium 1 amp 09/23/17 12:00 09/23/17 20:10 Duoneb - NEB 1 amp RQID NATALYA Administration Azithromycin 500 mg 09/22/17 10:00 09/23/17 10:12 Zithromax - PO 09/24/17 10:01 500 mg DAILY NATALYA Administration Hydroxyurea 500 mg 09/21/17 23:45 09/23/17 21:22 Hydrea - PO 500 mg BID NATALYA Administration Ceftriaxone Sodium 2 gm in 100 mls @ 100 mls/hr 09/24/17 10:00 Rocephin 2gm Ivpb (Pre-Docked) IVPB DAILY NATALYA Lactobacillus Acidophilus 1 cap 09/24/17 10:00 Bacid - PO DAILY [facility] Microbiology 09/21/17 19:30 Blood - Peripheral Venous Blood Culture - Preliminary NO GROWTH OBTAINED AFTER 48 HOURS, INCUBATION TO CONTINUE FOR 3 DAYS. 09/21/17 19:40 Blood - Peripheral Venous Blood Culture - Preliminary NO GROWTH OBTAINED AFTER 48 HOURS, INCUBATION TO CONTINUE FOR 3 DAYS. 09/21/17 22:20 Urine - Urine Clean Catch Urine Culture - Final Contaminated: Please Repeat IMAGING chest xray(09/24): progression of bilateral infiltrates CT of abd/pelvis w/o contrast: enlarged spleen, cholelithasis, multi-segment septal thickening with groundglass opacities in bilateral lung base, small bilateral layering pleural effusions, multichamber cardiomegly as per radiologist, Dr Palmer CT of chest: extensive ground glass opacification throughout the lung o[place], upper lobe predominant, may be diffuse pneumonitis vs pulmonary vascular congestion. ASSESSMENT/PLAN: 1) heme/onc myleofibrosis - wbc 283, yesterday, pending AM labs, concerned for acute aml awaiting flow cytometry - d/c [place] as per oncology continue hydroxyera - Dr Lane oncology consulted and following tumor lysis syndrome - elevated uric acid, ldh and phosp, will start allopurinol (renal dose) and sodium bicarb gtt - appreciate nephprology syndrome thrombocytopenia - plts 40, last blood transfusion was 3 weeks ago, close monitoring 2) pulm PNA - continue azithromycin and rocephin day 4 - pending urine antigens - echo, ef 50-55%, lv wnl, mild mr, tr 3) nephrology CKD - creatine 2.6 baseline 2.0, close monitoring - strict i/o daily weight - appreciate nephrology consult FEN -regular diet -daily electrolyte monitoring. ppx - mechanical ac - protonix lengthy discussion with family, as per patient's daughter Stephanie and daughter -in- law, requesting comfort measures only, no venipuncture or diagnostic imaging, do agree to IV hydration and antibiotics Dispo: inpatient admission Visit type - Emergency Visit Emergency Visit: Yes ED Registration Date: 09/21/17 Care time: The patient presented to the Emergency Department on the above date and was hospitalized for further evaluation of their emergent condition. - New Patient This patient is new to me today: No - Critical Care Critical Care patient: No - Discharge Referral Referred to [facility] Med [facility].C[facility] No
[2017-09-24] MEDS: ALBUTEROL SO4 2.5/IPRATROPIUM 0.5 INH SOL 3 ML VIAL.NEB. NEB SCH ×4 (08:35→16:00)
[2017-09-24] MEDS ORDERED: morphine CARPU-JECT 2 MG/1 ML DISP.SYRIN IVPUSH ONE (08:50)
[2017-09-24] MEDS ORDERED: SODIUM CHLORIDE 1,000 ML IV SCH (09:15)
[2017-09-24 09:22] LABS: PLATELET ESTIMATE DECREASED
[2017-09-24] MEDS ORDERED: SODIUM CHLORIDE 0.45% 1,000 ML with SODIUM BICARBONATE 8.4% - 50 MEQ IV SCH (09:30)
[2017-09-24] MEDS ORDERED: LACTOBACILLUS ACIDOPHILUS 1 CAP PO SCH (10:00)
[2017-09-24] MEDS ORDERED: CEFTRIAXONE 2 GM/100 ML BAG IVPB SCH (10:00)
[2017-09-24] MEDS ORDERED: LORazepam 2 MG/ML SDV VIAL IVPUSH ONE (10:00)
[2017-09-24] MEDS ORDERED: ALLOPURINOL 100 MG TABLET (FP) PO SCH (10:00)
--- NOTE | 2017-09-24 10:13 | PN ---
Progress Note, Physician History of Present Illness: Awake, responsive but lethargic Dysoneic at rest on NRB mask Temps down Afebrile WBC 283K with blasts BC no growth - Current Medication List Current Medications: Active Medications Acetaminophen (Tylenol -) 650 mg PO Q6H PRN PRN Reason: PAIN LEVEL 4 - 6 Last Admin: 09/24/17 01:48 Dose: 650 mg Albuterol/Ipratropium (Duoneb -) 1 amp NEB RQID NATALYA Last Admin: 09/24/17 08:35 Dose: 1 amp Allopurinol (Zyloprim -) 100 mg PO BID NATALYA Hydroxyurea (Hydrea -) 500 mg PO BID NATALYA Last Admin: 09/23/17 21:22 Dose: 500 mg Ceftriaxone Sodium (Rocephin 2gm Ivpb (Pre-Docked)) 2 gm in 100 mls @ 100 mls/ hr IVPB DAILY NATALYA Sodium Chloride (Normal Saline -) 1,000 mls @ 75 mls/hr IV ASDIR NATALYA Sodium Bicarbonate 50 meq/ (Sodium Chloride) 1,050 mls @ 75 mls/hr IV Q14H NATALYA Lactobacillus Acidophilus (Bacid -) 1 cap PO DAILY NATALYA - Objective Vital Signs: Vital Signs Temperature 98.6 F 09/24/17 06:05 Pulse Rate 50 L 09/24/17 06:05 Respiratory Rate 20 09/24/17 06:05 Blood Pressure 104/44 09/24/17 06:05 O2 Sat by Pulse Oximetry (%) 84 L 09/24/17 06:05 Constitutional: Yes: No Distress Eyes: Yes: Conjunctiva Clear Cardiovascular: Yes: Regular Rate and Rhythm, S1, S2 Respiratory: Yes: Diminished Gastrointestinal: Yes: Normal Bowel Sounds, Soft, Splenomegaly, Other (massive splenomegaly) Edema: No Labs: CBC, BMP 09/24/17 07:20 INR, PTT INR 1.74 (0.82-1.09) H 09/23/17 07:19 Assessment/Plan Bilateral ground glass infiltrates ? Infectious ? Leukemic Await c/s Continue empiric ceftriaxone/ zithromax
[2017-09-24] MEDS ORDERED: AZITHROMYCIN IVPB 250 ML IVPB SCH (10:15)
[2017-09-24] MEDS ORDERED: morphine SULFATE 4 MG/ML VIAL IVPUSH PRN (10:26)
[2017-09-24] MEDS ORDERED: LORazepam 2 MG/ML SDV VIAL IVPUSH PRN (10:47)
[2017-09-24] MEDS: HYDROXYUREA 500 MG CAPSULE PO SCH (10:49)
[2017-09-24] MEDS: AZITHROMYCIN 250 MG TABLET PO SCH (10:49)
--- NOTE | 2017-09-24 12:18 | CONSULT ---
Consult Consult Specialty:: Nephrology Reason for Consultation:: DAVID - History of Present Illness Chief Complaint: malaise, nausea, vomiting and dairrhea History of Present Illness: Pt is an 82 year old female with pmhx of myelofibrosis and splenic infarct who presents to the ER with nausea, vomiting and malaise. She was found to be in acute renal failure and I was called to evaluate her. Pt is lethargic and unable to give history. It is suspected that she may have tumor lysis. She was evaluated by oncology. Her family and health care proxy are at bedside. I discussed the lab findings with them and the renal failure. They do not want any more intervention and want to place pt on comfort care. - History Source History Provided By: Family Member - Past Medical History Cardio/Vascular: Yes: Murmur Heme/Onc: Yes: Other (myelofibrosis, splenic infarct) - Alcohol/Substance Use Hx Alcohol Use: No - Smoking History Smoking history: Former smoker Have you smoked in the past 12 months: No If you are a former smoker, when did you quit?: 1973 Home Medications - Allergies Allergies/Adverse Reactions: Allergies Allergy/AdvReac Type Severity Reaction Status Date / Time erythromycin base AdvReac Mild Nausea Verified 09/21/17 19:15 - Home Medications Home Medications: Ambulatory Orders Hydroxyurea [Hydrea] 500 mg PO BID 09/21/17 Ruxolitinib Phosphate [Jakafi] 15 mg PO BID 09/21/17 Family Disease History - Family Disease History Family History: Unable to Obtain Review of Systems Unable to obtain ROS, reason: lethargic Physical Exam Vital Signs: Vital Signs Temperature 98.6 F 09/24/17 06:05 Pulse Rate 50 L 09/24/17 06:05 Respiratory Rate 20 09/24/17 09:00 Blood Pressure 104/44 09/24/17 06:05 O2 Sat by Pulse Oximetry (%) 84 L 09/24/17 09:00 Constitutional: Yes: Calm, Mild Distress Eyes: Yes: Conjunctiva Clear Cardiovascular: Yes: S1, S2 Respiratory: Yes: On Venti-Mask Gastrointestinal: Yes: Splenomegaly Renal/: Yes: Incontinence Musculoskeletal: Yes: Muscle Weakness Edema: Yes Edema: LLE: 1+, RLE: 1+ Neurological: Yes: Lethargy Labs: CBC, BMP 09/24/17 07:20 Laboratory Tests 04/01/0109/21/17 09/22/17 19:30 19:30 06:00 WBC 238.9 H* Hgb Plt Count 55 L VBG pH 7.31 L Sodium Potassium Chloride Carbon Dioxide Anion Gap BUN Creatinine Lactic Acid 1.4 Uric Acid LD Total 09/22/17 09/23/17 09/23/17 06:00 07:19 07:19 WBC Hgb 9.0 L Plt Count 40 L* VBG pH Sodium Potassium Chloride Carbon Dioxide Anion Gap BUN Creatinine 2.2 H 2.5 H Lactic Acid Uric Acid LD Total 09/24/17 07:20 WBC Hgb Plt Count VBG pH Sodium 136 Potassium 5.2 H Chloride 112 H Carbon Dioxide 18 L Anion Gap 6 L BUN 90 H Creatinine 2.6 H Lactic Acid Uric Acid 11.1 H LD Total 494 H Imaging - Results Chest X-ray: Report Reviewed Problem List - Problems (1) DAVID (acute kidney injury) Code(s): N17.9 - ACUTE KIDNEY FAILURE, UNSPECIFIED (2) Leukemia Code(s): C95.90 - LEUKEMIA, UNSPECIFIED NOT HAVING ACHIEVED REMISSION (3) Myelofibrosis Code(s): D75.81 - MYELOFIBROSIS Assessment/Plan Current Medications Generic Name Dose Route Start Last Admin Trade Name Freq PRN Reason Stop Dose Admin Acetaminophen 650 mg 09/24/17 13:37 Tylenol Suppository - SC Q4H PRN FEVER Albuterol/Ipratropium 1 amp 09/23/17 12:00 09/24/17 13:24 Duoneb - NEB 1 amp RQID NATALYA Administration Allopurinol 100 mg 09/24/17 10:00 09/24/17 10:49 Zyloprim - PO 100 mg BID NATALYA Administration Ceftriaxone Sodium 2 gm in 100 mls @ 100 mls/hr 09/24/17 10:00 09/24/17 10:49 Rocephin 2gm Ivpb (Pre-Docked) IVPB 100 mls/hr DAILY NATALYA Administration Sodium Bicarbonate 50 meq/ 1,050 mls @ 75 mls/hr 09/24/17 09:30 09/24/17 10: 00 Sodium Chloride IV 75 mls/hr Q14H NATALYA Administration Azithromycin 250 mls @ 250 mls/hr 09/24/17 10:15 Zithromax 500mg Ivpb (Pre-Docked) IVPB DAILY NATALYA Morphine Sulfate 100 mg/ 100 mls @ 1 mls/hr 09/24/17 13:45 Sodium Chloride IVPB TITR NATALYA Protocol 1 MG/HR Lorazepam 1 mg 09/24/17 10:47 Ativan Injection - IVPUSH TID PRN ANXIETY Morphine Sulfate 2 mg 09/24/17 10:26 Morphine Sulfate IVPUSH Q3H PRN PAIN LEVEL 7 - 10 Impression 1. DAVID 2. r/o tumor lysis 3. leukemia 4. myelofibrosis 5. hx splenic infarct 6. resp failure req 100 percent oxygen Plan - discussed care with family, they do not want any further intervention - they do not want any more blood work and are asking for comfort care - rest of management per primary team - will follow PRN
[2017-09-24] MEDS ORDERED: ACETAMINOPHEN 1000 MG/100 ML VIAL (NON FORMULARY) IVPB ONE (13:15)
[2017-09-24] MEDS ORDERED: ACETAMINOPHEN 650 MG SUPP.RECT PR PRN (13:37)
[2017-09-24] MEDS ORDERED: MORPHINE 100 MG in SODIUM CHLORIDE 98 ML IVPB SCH (13:45)
[2017-09-24] MEDS ORDERED: MORPHINE SULFATE IVPB ONE (14:08)
[2017-09-24 14:23] LABS: HEMATOCRIT 22.1 % (32.4-45.2); MCH 31.3 pg (25.7-33.7); MCHC 27.1 g/dl (32.0-36.0); MEAN CELL VOLUME 115.4 fl (80-96); RBC 1.91 M/mm3 (3.60-5.2)
[2017-09-24 14:24] LABS: LYMPH % 0.9 % (8-40); MEAN PLT VOLUME 12.9 fl (7.5-11.1); MONO % 1.6 % (3.8-10.2); NEUT % 94.9 % (42.8-82.8); PLATELET COUNT 66 K/MM3 (134-434); RDW 24.2 % (11.6-15.6)
[2017-09-24 14:25] LABS: BASO % 0.5 % (0-2.0); EOS % 2.1 % (0-4.5)
[2017-09-24 14:28] LABS: WHITE BLOOD COUNT 324.5 K/mm3 (4.0-10.0)
[2017-09-24 18:19] VITALS: BP 70/40; PULSE 36; TEMP 102.5
--- NOTE | 2017-09-24 19:10 | ED.PROV ---
Physicial Exam I saw and examined the patient. - Vital Signs Last Vital Signs Temp Pulse Resp BP Pulse Ox 102.5 F H 36 L 12 70/40 84 L 09/24/17 18:11 09/24/17 18:11 09/24/17 18:11 09/24/17 18:11 09/24/17 09:00 Critical Care Time/MDM Note - Medical Decision Making Note: 09/24/17 19:10 note Patient Quin Mcdowell pronounced at at 6:13 PM, 09/24/2017 No pupillary response to light no response to tactile similar no breath sounds Condolences expressed to family at bedside
--- NOTE | 2017-09-25 09:51 | PATH ---
Surgical Pathology Report Patient Name: NURY ORTIZ Med. Rec. #: [id number] /Age/Gender: 1935 (Age: 82) / F Account: [id number] Location: [facility] MED-SURG Taken: 09/23/2017 Received: 09/23/2017 Reported: 09/25/2017 Physicians: Garcia Dennis M.D. Specimen(s) Received PERIPHERAL BLOOD Clinical History Myelofibrosis, immature cells/blasts present Final Diagnosis COMPREHENSIVE FLOW CYTOMETRY performed and interpreted at [place], [place] ([id number]) INTERPRETATION: The [id number] blasts are 2% of total events. Left-shifted granulocytes. There is no evidence of B or T-cell proliferative disorders. 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 Correlation with molecular studies (BCR/ABL-1, JAK2, CALR) is essential. Electronically Signed Mary Franklin M.D. Gross Description Received are 2 green top tubes of peripheral blood which are sent to [facility]. DL/09/23/2017 saudi/09/23/2017
--- NOTE | 2017-09-25 12:03 | DS ---
Physical Exam: SUBJECTIVE: summary was written after patient was discharge OBJECTIVE:This 82 yr old female who has a significant hx of myleofibrosis, splenic infarct 2016 and elevated WBC 240's on average per pt. She had pneumonia last year during the winter season with + sepsis in ICU, and again most recently with PNA treated with keflex po at home in July. She was brought her by her family for increase shortness of breath. In the ER she was found to have right lobe pneumonia and started on Azithromax and Rocephin. ER course was notable for: (1) CXR with + PNA (2) Abd/pelvc CT noted for PNA, splenomegaly 27.9 x 13.8 (pt said is was slightly enlarged from 24) Vital Signs Period Temp Pulse Resp BP Sys/Vo Pulse Ox Last 24 Hr 101.4 F-102.5 F 36-40 12-22 70-92/40-40 PHYSICAL EXAM no physical exam performed, patient was discharged prior to writing discharge summary LABS Laboratory Results - last 24 hr 09/24/17 09:10 WBC 324.5 H* Corrected WBC (auto) 324.50 RBC 1.91 L Hgb 6.0 L* Hct 22.1 L MCV 115.4 H MCH 31.3 MCHC 27.1 L RDW 24.2 H Plt Count 66 L MPV 12.9 H Neutrophils % 94.9 H Lymphocytes % 0.9 L Monocytes % 1.6 L Eosinophils % 2.1 Basophils % 0.5 IMAGING chest xray(09/24): progression of bilateral infiltrates CT of abd/pelvis w/o contrast: enlarged spleen, cholelithasis, multi-segment septal thickening with groundglass opacities in bilateral lung base, small bilateral layering pleural effusions, multichamber cardiomegly as per radiologist, Dr Palmer CT of chest: extensive ground glass opacification throughout the lung [place], upper lobe predominant, may be diffuse pneumonitis vs pulmonary vascular congestion. HOSPITAL COURSE: 1) myleofibrosis - wbc 324, flow cytometery reviewed, strongly suggestive for acute AML, discussed with family and patient, decline any aggressive measures requested palliative care. patient placed on comfort measures only. - d/c [place] as per oncology continued hydroxyera - Dr Lane oncology consulted and following tumor lysis syndrome - elevated uric acid, ldh and phosp, patient was started on allopurinol (renal dose) and sodium bicarb gtt - nephprology consulted and followed thrombocytopenia - plts 40, last blood transfusion was 3 weeks ago, close monitoring 2) PNA -treated with azithromycin and rocephin throughout admission - urine antigens negative - echo, ef 50-55%, lv wnl, mild mr, tr Date of Admission:09/21/17 Date of Discharge: 09/25/17 Minutes to complete discharge: 45 Discharge Summary Reason For Visit: PNEUMONIA/DEHYDRATION. Condition: Fair - Instructions Disposition: - Home Medications Comprehensive Discharge Medication List: Ambulatory Orders Hydroxyurea [Hydrea] 500 mg PO BID 09/21/17 Ruxolitinib Phosphate [Jakafi] 15 mg PO BID 09/21/17 This patient is new to me today: No Emergency Visit: Yes ED Registration Date: 09/21/17 Care time: The patient presented to the Emergency Department on the above date and was hospitalized for further evaluation of their emergent condition. Critical Care patient: No - Discharge Referral Referred to [facility] Med P.C.: No
== END 2017-09-24 21:13 | disposition expired | DRG 834 ==
LOC: FER 19:00 → FM/S 23:58
PROVIDERS: ADMIT Internal Medicine; ATTEND Nurse Practitioner Family
DX: C92.00 Acute myeloblastic leukemia, not having achieved remission (principal); J18.9 Pneumonia, unspecified organism; E88.3 Tumor lysis syndrome; J96.00 Acute respiratory failure, unspecified whether with hypoxia or hypercapnia; J90 Pleural effusion, not elsewhere classified; N17.9 Acute kidney failure, unspecified; D75.81 Myelofibrosis; C95.90 Leukemia, unspecified not having achieved remission; C94.6 Myelodysplastic disease, not elsewhere classified; E86.0 Dehydration; R16.1 Splenomegaly, not elsewhere classified; K80.20 Calculus of gallbladder without cholecystitis without obstruction; D69.6 Thrombocytopenia, unspecified; N18.9 Chronic kidney disease, unspecified; I50.9 Heart failure, unspecified; I89.0 Lymphedema, not elsewhere classified; Z87.891 Personal history of nicotine dependence
CPT/HCPCS: 36415; 71045-TC-FY; 71250-TC; 74176-TC; 80048; 80053; 81003; 81015; 82550; 82803; 83605; 83615; 83735; 83880; 84100; 84484; 84550; 85025; 85610; 85730; 86850; 86900; 86901; 87040; 87086; 87899; 88300-TC; 93005; 93306-TC; 94640; 97116-GP; 97161-GP; 99285-25; J0131; J7030; J8999